=== PATIENT | female | born 1955 | race Caucasian/White ===

== ENCOUNTER 2018-05-23 13:11 | Emergency (ER) | payer OTHER ==
[2018-05-23 13:42] VITALS: BP 147/80
--- NOTE | 2018-05-23 14:16 | EDM.PDOC ---
ED HPI GENERAL MEDICAL PROBLEM - General Chief Complaint: Chest Pain Stated Complaint: HAS HAD PAIN IN CHEST AREA Time Seen by Provider: 05/23/18 14:10 Source of Information: Reports: Patient History Limitations: Reports: No Limitations - History of Present Illness INITIAL COMMENTS - FREE TEXT/NARRATIVE: pt arrived with a history of a brief episode of pain in the mid chest area. She is not sob. she did have a brief episode of burning pain in the throat area. She felt like she could have gotten a little sweaty at that time. 2 weeks ago she had a similar episode but it did last a little longer than this one. She is not sob. Onset: Today, Sudden Duration: Minutes: Location: Reports: Chest Associated Symptoms: Reports: Chest Pain - Related Data Allergies Allergy/AdvReac Type Severity Reaction Status Date / Time latex Allergy Rash Verified 05/23/18 13:30 lisinopril AdvReac Cough Verified 05/23/18 13:30 Home Meds: Home Meds Vitamin E 400 units PO DAILY 12/30/13 [History] Acetaminophen [Tylenol Extra Strength] 1 - 2 tab PO ASDIRECTED PRN 08/09/14 [ History] Allopurinol [Zyloprim] 300 mg PO DAILY 08/09/14 [History] Aspirin [Halfprin] 81 mg PO DAILY 08/09/14 [History] Cholecalciferol (Vitamin D3) [Vitamin D] 1 tab PO DAILY 08/09/14 [History] Citalopram Hydrobromide [Celexa] 20 mg PO DAILY 08/09/14 [History] HCTZ/Triamterene [Maxzide 25-37.5 MG] 0.5 tab PO DAILY 08/09/14 [History] Metoprolol Succinate [Toprol Xl] 100 tab PO DAILY 08/09/14 [History] Omeprazole [Prilosec] 1 tab PO DAILY PRN 08/09/14 [History] Simvastatin [Zocor] 1 tab PO BEDTIME 08/09/14 [History] amLODIPine [Norvasc] 5 mg PO DAILY 08/09/14 [History] buPROPion [Wellbutrin XL] 300 mg PO DAILY 08/09/14 [History] Cyanocobalamin (Vitamin B-12) [Vitamin B-12] 1 tab PO DAILY 08/11/14 [History] Past Medical History Cardiovascular History: Reports: CAD, High Cholesterol, Hypertension 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 History: Reports: GERD 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: Musculoskeletal History: Reports: Gout, Osteoporosis Psychiatric History: Reports: Depression Dermatologic History: Reports: Other (See Below) Other Dermatologic History: rash - Infectious Disease History Infectious Disease History: Reports: Chicken Pox - Past Surgical History Cardiovascular Surgical History: Reports: Coronary Artery Stent, Percutaneous Transluminal Angioplasty GI Surgical History: Reports: Appendectomy Female Surgical History: Reports: Hysterectomy, Salpingo-Oophorectomy Musculoskeletal Surgical History: Reports: Knee Replacement, Shoulder Surgery Social & Family History - Tobacco Use Smoking Status *Q: Never Smoker - Caffeine Use Caffeine Use: Reports: Coffee - Recreational Drug Use Recreational Drug Use: No ED ROS GENERAL - Review of Systems Review Of Systems: See Below Constitutional: Reports: No Symptoms HEENT: Reports: No Symptoms Respiratory: Reports: No Symptoms Cardiovascular: Reports: Chest Pain Endocrine: Reports: No Symptoms GI/Abdominal: Reports: No Symptoms : Reports: No Symptoms Musculoskeletal: Reports: No Symptoms Skin: Reports: No Symptoms Neurological: Reports: No Symptoms Psychiatric: Reports: No Symptoms ED EXAM, GENERAL - Physical Exam Exam: See Below Free Text/Narrative:: pt arrived with a episodde of chest pressure and some burning chest pain debora g to her neck. Exam Limited By: No Limitations General Appearance: Alert, Anxious, Mild Distress Ears: Normal TMs Nose: Normal Inspection Throat/Mouth: Normal Inspection Head: Atraumatic Neck: Normal Inspection Respiratory/Chest: No Respiratory Distress Cardiovascular: Regular Rate, Rhythm GI/Abdominal: Soft, Non-Tender (Female) Exam: Deferred Rectal (Female) Exam: Deferred Back Exam: Normal Inspection Extremities: Normal Inspection Neurological: Alert, Oriented, Normal Cognition Psychiatric: Normal Affect Course - Vital Signs Last Recorded V/S: Last Vital Signs Temp 36.3 C 05/23/18 13:36 Pulse 78 05/23/18 13:36 Resp 20 05/23/18 13:36 BP 147/80 H 05/23/18 13:36 Pulse Ox 97 05/23/18 13:36 - Orders/Labs/Meds Orders: Active Orders 24 hr Category Date Time Status EKG Documentation Completion [RC] ASDIRECTED Care 05/23/18 14:09 Active Potassium Chloride [Klor-Con M20] Med 05/23/18 15:15 Once 20 meq PO ONETIME ONE EKG 12 Lead [EK] Routine Ther 05/23/18 14:09 Ordered Labs: Laboratory Tests 05/23/18 05/23/18 05/23/18 Range/Units 14:20 14:20 14:20 WBC 8.0 (4.5-11.0) K/uL RBC 4.46 (3.30-5.50) M/uL Hgb 14.0 (12.0-15.0) g/dL Hct 42.4 (36.0-48.0) % MCV 95 (80-98) fL MCH 31 (27-31) pg MCHC 33 (32-36) % Plt Count 278 (150-400) K/uL Neut % (Auto) 51 (36-66) % Lymph % (Auto) 37 (24-44) % [place] % (Auto) 10 H (2-6) % Eos % (Auto) 2 (2-4) % Baso % (Auto) 1 (0-1) % Sodium 140 (140-148) mmol/L Potassium 3.1 L (3.6-5.2) mmol/L Chloride 103 (100-108) mmol/L Carbon Dioxide 28 (21-32) mmol/L Anion Gap 12.1 (5.0-14.0) mmol/L BUN 25 H (7-18) mg/dL Creatinine 1.1 H (0.6-1.0) mg/dL Est Cr Clr Drug Dosing 48.37 mL/min Estimated GFR (MDRD) 50 L (>60) Glucose 120 H (74-106) mg/dL Calcium 9.4 (8.5-10.1) mg/dL Total Bilirubin 0.8 (0.2-1.0) mg/dL AST 21 (15-37) U/L ALT 30 (12-78) U/L Alkaline Phosphatase 110 (46-116) U/L Troponin I < 0.017 (0.000-0.056) ng/mL Total Protein 6.8 (6.4-8.2) g/dL Albumin 3.6 (3.4-5.0) g/dL Globulin 3.2 (2.3-3.5) g/dL Albumin/Globulin Ratio 1.1 L (1.2-2.2) - Re-Assessments/Exams Free Text/Narrative Re-Assessment/Exam: 05/23/18 15:22 ekg looked normal and her trop was normal. All other lab was normal. Departure - Departure Time of Disposition: 15:26 Disposition: Home, Self-Care 01 Condition: Fair Clinical Impression: Atypical chest pain Referrals: Ivy Martinez PA [Primary Care Provider] - Forms: ED Department Discharge Care Plan Goals: rtc for a exercise cardiolyte., rtc if pt has further problems. - My Orders Last 24 Hours: My Active Orders 05/23/18 14:09 EKG Documentation Completion [RC] ASDIRECTED EKG 12 Lead [EK] Routine 05/23/18 15:15 Potassium Chloride [Klor-Con M20] 20 meq PO ONETIME ONE - Assessment/Plan Last 24 Hours: My Active Orders 05/23/18 14:09 EKG Documentation Completion [RC] ASDIRECTED EKG 12 Lead [EK] Routine 05/23/18 15:15 Potassium Chloride [Klor-Con M20] 20 meq PO ONETIME ONE
[2018-05-23] MEDS ORDERED: Potassium Chloride 20 MEQ Tab.ER PO ONE (15:15)
== END 2018-05-23 15:41 | disposition home or self-care (01) ==
LOC: JP.ED 13:11
DX: R07.89 Other chest pain (principal); I10 Essential (primary) hypertension; Z91.040 Latex allergy status; Z88.8 Allergy status to other drugs, medicaments and biological substances; Z79.899 Other long term (current) drug therapy; Z79.82 Long term (current) use of aspirin
CPT/HCPCS: 36415; 80053; 84484; 85025; 93005; 99285; A9270

== ENCOUNTER 2018-05-24 04:04 | Emergency (ER) | payer OTHER ==
--- NOTE | 2018-05-24 04:51 | EDM.PDOC ---
ED HPI GENERAL MEDICAL PROBLEM - General Chief Complaint: Chest Pain Stated Complaint: BURNING IN CHEST Time Seen by Provider: 05/24/18 04:30 Source of Information: Reports: Patient History Limitations: Reports: No Limitations - History of Present Illness INITIAL COMMENTS - FREE TEXT/NARRATIVE: 62-year-old female in the emergency room the second time in 24 hours for burning in her chest. She does have a history of coronary disease and had a stent placed 20 years ago. This is the fourth time at least that she has had this burning sensation in the last 2 weeks, the first was 2 weeks ago and it lasted 10 minutes. Yesterday afternoon she was here with the sensation, a fairly complete workup was done in the emergency room which was negative and a stress test is going to be done this week. Tonight however she woke up with the burning sensation, took a few TUMS and it didn't go away and she started to worry so came back in. She has no shortness of breath, nausea or vomiting, diaphoresis or any other symptom, it does not radiate. Onset: Unknown/Unsure Location: Reports: Chest (Substernal lower anterior chest and upper abdomen) Quality: Reports: Burning Severity: Moderate Improves with: Reports: Other (She feels it gets a little better when she hugs herself or closes her arms) Worsens with: Reports: None Treatments AREA CLEANER: Reports: Other (see below) (She tried antacids without relief) chest pain Pain Score (Numeric/FACES): 3 - Related Data Allergies Allergy/AdvReac Type Severity Reaction Status Date / Time latex Allergy Rash Verified 05/24/18 04:10 lisinopril AdvReac Cough Verified 05/24/18 04:10 Home Meds: Home Meds Vitamin E 400 units PO DAILY 12/30/13 [History] Acetaminophen [Tylenol Extra Strength] 1 - 2 tab PO ASDIRECTED PRN 08/09/14 [ History] Allopurinol [Zyloprim] 300 mg PO DAILY 08/09/14 [History] Aspirin [Halfprin] 81 mg PO DAILY 08/09/14 [History] Cholecalciferol (Vitamin D3) [Vitamin D] 1 tab PO DAILY 08/09/14 [History] Citalopram Hydrobromide [Celexa] 20 mg PO DAILY 08/09/14 [History] HCTZ/Triamterene [Maxzide 25-37.5 MG] 0.5 tab PO DAILY 08/09/14 [History] Metoprolol Succinate [Toprol Xl] 100 tab PO DAILY 08/09/14 [History] Omeprazole [Prilosec] 1 tab PO DAILY PRN 08/09/14 [History] Simvastatin [Zocor] 1 tab PO BEDTIME 08/09/14 [History] amLODIPine [Norvasc] 5 mg PO DAILY 08/09/14 [History] buPROPion [Wellbutrin XL] 300 mg PO DAILY 08/09/14 [History] Cyanocobalamin (Vitamin B-12) [Vitamin B-12] 1 tab PO DAILY 08/11/14 [History] Past Medical History Cardiovascular History: Reports: CAD, High Cholesterol, Hypertension 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 History: Reports: GERD 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: Musculoskeletal History: Reports: Gout, Osteoporosis Psychiatric History: Reports: Depression Dermatologic History: Reports: Other (See Below) Other Dermatologic History: rash - Infectious Disease History Infectious Disease History: Reports: Chicken Pox - Past Surgical History Cardiovascular Surgical History: Reports: Coronary Artery Stent, Percutaneous Transluminal Angioplasty GI Surgical History: Reports: Appendectomy Female Surgical History: Reports: Hysterectomy, Salpingo-Oophorectomy Musculoskeletal Surgical History: Reports: Knee Replacement, Shoulder Surgery Social & Family History - Family History Family Medical History: Unobtainable - Tobacco Use Smoking Status *Q: Never Smoker Second Hand Smoke Exposure: No - Caffeine Use Caffeine Use: Reports: Coffee - Recreational Drug Use Recreational Drug Use: No ED ROS GENERAL - Review of Systems Review Of Systems: See Below Constitutional: Denies: Fever, Chills Respiratory: Denies: Shortness of Breath Cardiovascular: Reports: Chest Pain GI/Abdominal: Denies: Abdominal Pain, Nausea, Vomiting Skin: Reports: No Symptoms Neurological: Reports: No Symptoms ED EXAM, GENERAL - Physical Exam Exam: See Below Exam Limited By: No Limitations General Appearance: Alert, No Apparent Distress Eye Exam: Bilateral Eye: EOMI Respiratory/Chest: No Respiratory Distress, Lungs Clear Cardiovascular: Regular Rate, Rhythm. No: Extra Beats GI/Abdominal: Soft, Non-Tender Extremities: Pedal Edema (Just a trace of ankle edema is present) Neurological: Alert, Oriented Psychiatric: Normal Affect, Normal Mood Skin Exam: Warm, Dry EKG INTERPRETATION Rhythm: NSR Course - Vital Signs Last Recorded V/S: Last Vital Signs Temp 96.3 F 05/24/18 04:30 Pulse 65 05/24/18 05:06 Resp 14 05/24/18 05:06 BP 119/79 05/24/18 05:06 Pulse Ox 98 05/24/18 05:06 - Orders/Labs/Meds Orders: Active Orders 24 hr Category Date Time Status EKG Documentation Completion [RC] ASDIRECTED Care 05/24/18 04:44 Active Labs: Laboratory Tests 05/24/18 Range/Units 04:50 Sodium 139 L (140-148) mmol/L Potassium 3.4 L (3.6-5.2) mmol/L Chloride 103 (100-108) mmol/L Carbon Dioxide 31 (21-32) mmol/L Anion Gap 8.4 (5.0-14.0) mmol/L BUN 24 H (7-18) mg/dL Creatinine 1.1 H (0.6-1.0) mg/dL Est Cr Clr Drug Dosing 48.63 mL/min Estimated GFR (MDRD) 50 L (>60) Glucose 109 H (74-106) mg/dL Calcium 9.1 (8.5-10.1) mg/dL Troponin I < 0.017 (0.000-0.056) ng/mL Meds: Medications Discontinued Medications Generic Name Dose Route Start Last Admin Trade Name Freq PRN Reason Stop Dose Admin Al Hydroxide/Mg Hydroxide 15 0 ml 05/24/18 04:58 05/24/18 05:05 ml/ Lidocaine HCl 15 ml PO 05/24/18 04:59 15 ml ONETIME ONE Administration - Re-Assessments/Exams Free Text/Narrative Re-Assessment/Exam: 05/24/18 04:51 An EKG was done and compared to this morning. BMP and troponin were drawn and the patient was given a GI cocktail. 05/24/18 05:43 GI cocktail didn't seem to make a difference. EKG was now completely normal, troponin was 0 and potassium was improved from yesterday. Encouraged the patient to keep her appointment for her stress test, she can always return if she feels she is worsening. Departure - Departure Time of Disposition: 05:57 Disposition: Home, Self-Care 01 Condition: Good Clinical Impression: Atypical chest pain - Discharge Information Instructions: Nonspecific Chest Pain, [id number] Referrals: PCP,None [Primary Care Provider] - Forms: ED Department Discharge Care Plan Goals: Tylenol or ibuprofen several times daily may be beneficial if you're symptoms are musculoskeletal. Finish stress test as scheduled, and return anytime if worsening or concerns. - My Orders Last 24 Hours: My Active Orders 05/24/18 04:44 EKG Documentation Completion [RC] ASDIRECTED - Assessment/Plan Last 24 Hours: My Active Orders 05/24/18 04:44 EKG Documentation Completion [RC] ASDIRECTED
[2018-05-24] MEDS ORDERED: Alum Hydrox/Mag Hydrox/Simeth 15 ML, Lidocaine 2% 15 ML PO ONE ×2 (04:58)
[2018-05-24 05:08] VITALS: BP 119/79
--- NOTE | 2018-05-24 09:40 | CR ---
CHEST: 2 view CLINICAL HISTORY:Dyspnea COMPARISON:None FINDINGS: Heart size and pulmonary vascularity are normal. No infiltrate effusion or pneumothorax is seen. Impression: No acute cardiopulmonary process.
== END 2018-05-24 05:59 | disposition home or self-care (01) ==
LOC: JP.ED 04:04
DX: R07.89 Other chest pain (principal)
CPT/HCPCS: 36415; 71046; 80048; 84484; 93005; 99285; A9270

== ENCOUNTER 2019-08-28 03:20 | Emergency (ER) | payer OTHER ==
[2019-08-28] MEDS ORDERED: Sodium Chloride 0.9% 10 ML Syringe FLUSH PRN (03:40)
[2019-08-28] MEDS ORDERED: Ibutilide 1 MG/10 ML Vial IVPUSH ONE (03:41)
--- NOTE | 2019-08-28 03:44 | EDM.PDOC ---
ED HPI GENERAL MEDICAL PROBLEM - General Chief Complaint: Cardiovascular Problem Stated Complaint: RAPID HEART BEAT Time Seen by Provider: 08/28/19 03:36 Source of Information: Reports: Patient, Family, RN Notes Reviewed History Limitations: Reports: No Limitations - History of Present Illness INITIAL COMMENTS - FREE TEXT/NARRATIVE: 64-year-old female presents emergency department today complaint of palpitations , she states she woke from sleep with palpitations does have some pain in her left arm as well as her left neck initially short of breath initially nauseated and diaphoretic though symptoms have improved this time. No history of atrial fibrillation no history of atrial flutter - Related Data Allergies Allergy/AdvReac Type Severity Reaction Status Date / Time latex Allergy Rash Verified 08/28/19 03:36 lisinopril AdvReac Cough Verified 08/28/19 03:36 Home Meds: Home Meds Vitamin E 400 units PO BEDTIME 12/30/13 [History] Acetaminophen [Tylenol Extra Strength] 1 - 2 tab PO ASDIRECTED PRN 08/09/14 [ History] Allopurinol [Zyloprim] 300 mg PO DAILY 08/09/14 [History] Aspirin [Halfprin] 81 mg PO BEDTIME 08/09/14 [History] Cholecalciferol (Vitamin D3) [Vitamin D] 1 tab PO DAILY 08/09/14 [History] Citalopram Hydrobromide [Celexa] 20 mg PO DAILY 08/09/14 [History] HCTZ/Triamterene [Maxzide 25-37.5 MG] 1 tab PO DAILY 08/09/14 [History] Metoprolol Succinate [Toprol Xl] 100 tab PO DAILY 08/09/14 [History] Omeprazole [Prilosec] 1 tab PO DAILY PRN 08/09/14 [History] Simvastatin [Zocor] 80 mg PO BEDTIME 08/09/14 [History] amLODIPine [Norvasc] 5 mg PO DAILY 08/09/14 [History] buPROPion [Wellbutrin XL] 300 mg PO DAILY 08/09/14 [History] Cyanocobalamin (Vitamin B-12) [Vitamin B-12] 1 tab PO DAILY 08/11/14 [History] Past Medical History Cardiovascular History: Reports: CAD, High Cholesterol, Hypertension 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 History: Reports: GERD 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: Musculoskeletal History: Reports: Gout, Osteoporosis Psychiatric History: Reports: Depression Dermatologic History: Reports: Other (See Below) Other Dermatologic History: rash - Infectious Disease History Infectious Disease History: Reports: Chicken Pox - Past Surgical History Cardiovascular Surgical History: Reports: Coronary Artery Stent, Percutaneous Transluminal Angioplasty GI Surgical History: Reports: Appendectomy Female Surgical History: Reports: Hysterectomy, Salpingo-Oophorectomy Musculoskeletal Surgical History: Reports: Knee Replacement, Shoulder Surgery Social & Family History - Family History Family Medical History: Unobtainable - Tobacco Use Smoking Status *Q: Never Smoker - Caffeine Use Caffeine Use: Reports: Coffee ED ROS GENERAL - Review of Systems Review Of Systems: See Below Constitutional: Reports: Diaphoresis HEENT: Reports: No Symptoms Respiratory: Reports: Shortness of Breath Cardiovascular: Reports: Palpitations GI/Abdominal: Reports: Nausea : Reports: No Symptoms ED EXAM, GENERAL - Physical Exam Exam: See Below Exam Limited By: No Limitations General Appearance: Alert, WD/WN, No Apparent Distress Neck: Normal Inspection, Supple, Non-Tender, Full Range of Motion Respiratory/Chest: No Respiratory Distress, Lungs Clear, Normal Breath Sounds, No Accessory Muscle Use, Chest Non-Tender Cardiovascular: No Murmur (Corvert), Tachycardia GI/Abdominal: Soft, Non-Tender Course - Vital Signs Last Recorded V/S: Last Vital Signs Temp 96.6 F 08/28/19 03:42 Pulse 114 H 08/28/19 04:11 Resp 15 08/28/19 04:11 BP 123/72 08/28/19 04:11 Pulse Ox 97 08/28/19 04:11 - Orders/Labs/Meds Orders: Active Orders 24 hr Category Date Time Status Cardiac Monitoring [RC] .As Directed Care 08/28/19 03:40 Active EKG Documentation Completion [RC] ASDIRECTED Care 08/28/19 03:41 Active EKG Documentation Completion [RC] ASDIRECTED Care 08/28/19 06:46 Active Peripheral IV Care [RC] . DIRECTED Care 08/28/19 03:41 Active Sodium Chloride 0.9% [Normal Saline] 1,000 ml Med 08/28/19 03:45 Active IV ASDIRECTED Sodium Chloride 0.9% [Normal Saline] 1,000 ml Med 08/28/19 05:45 Active IV ASDIRECTED Sodium Chloride 0.9% [Saline Flush] Med 08/28/19 03:40 Active 10 ml FLUSH ASDIRECTED PRN Peripheral IV Insertion Adult [OM.PC] Stat Oth 08/28/19 03:40 Ordered EKG 12 Lead [EK] Stat Ther 08/28/19 03:40 Ordered EKG 12 Lead [EK] Stat Ther 08/28/19 06:45 Ordered Medication Orders Sodium Chloride (Normal Saline) 1,000 mls @ 125 mls/hr IV ASDIRECTED ANA Last Infusion: 08/28/19 04:58 Dose: 999 mls/hr Admin: 08/28/19 03:51 Dose: 125 mls/hr Sodium Chloride (Normal Saline) 1,000 mls @ 500 mls/hr IV ASDIRECTED ANA Last Admin: 08/28/19 05:51 Dose: 500 mls/hr Sodium Chloride (Saline Flush) 10 ml FLUSH ASDIRECTED PRN PRN Reason: Keep Vein Open Last Admin: 08/28/19 03:51 Dose: 10 ml Labs: Laboratory Tests 08/28/19 08/28/19 Range/Units 03:50 03:50 WBC 8.6 (4.5-11.0) K/uL RBC 4.43 (3.30-5.50) M/uL Hgb 14.2 (12.0-15.0) g/dL Hct 42.6 (36.0-48.0) % MCV 96 (80-98) fL MCH 32 H (27-31) pg MCHC 33 (32-36) % Plt Count 271 (150-400) K/uL Neut % (Auto) 43 (36-66) % Lymph % (Auto) 42 (24-44) % [place] % (Auto) 12 H (2-6) % Eos % (Auto) 3 (2-4) % Baso % (Auto) 1 (0-1) % Sodium 141 (140-148) mmol/L Potassium 3.1 L (3.6-5.2) mmol/L Chloride 102 (100-108) mmol/L Carbon Dioxide 29 (21-32) mmol/L Anion Gap 13.1 (5.0-14.0) mmol/L BUN 30 H (7-18) mg/dL Creatinine 1.1 H (0.6-1.0) mg/dL Est Cr Clr Drug Dosing 47.10 mL/min Estimated GFR (MDRD) 50 L (>60) Glucose 111 H (74-106) mg/dL Calcium 9.3 (8.5-10.1) mg/dL Total Bilirubin 0.5 (0.2-1.0) mg/dL AST 19 (15-37) U/L ALT 21 (12-78) U/L Alkaline Phosphatase 101 (46-116) U/L Troponin I < 0.017 (0.000-0.056) ng/mL Total Protein 7.0 (6.4-8.2) g/dL Albumin 3.5 (3.4-5.0) g/dL Globulin 3.5 (2.3-3.5) g/dL Albumin/Globulin Ratio 1.0 L (1.2-2.2) Meds: Medications Generic Name Dose Route Start Last Admin Trade Name Freq PRN Reason Stop Dose Admin Sodium Chloride 1,000 mls @ 125 mls/hr 08/28/19 03:45 08/28/19 04:58 Normal Saline IV 999 mls/hr ASDIRECTED ANA Infusion Sodium Chloride 1,000 mls @ 500 mls/hr 08/28/19 05:45 08/28/19 05:51 Normal Saline IV 500 mls/hr ASDIRECTED ANA Administration Sodium Chloride 10 ml 08/28/19 03:40 08/28/19 03:51 Saline Flush FLUSH 10 ml ASDIRECTED PRN Administration Keep Vein Open Discontinued Medications Generic Name Dose Route Start Last Admin Trade Name Freq PRN Reason Stop Dose Admin Diltiazem HCl 25 mg 08/28/19 05:26 08/28/19 05:35 Diltiazem IVPUSH 08/28/19 05:27 25 mg ONETIME ONE Administration Ibutilide Fumarate 1 mg 08/28/19 03:41 08/28/19 04:08 [place]vert IVPUSH 08/28/19 03:42 1 mg ONETIME ONE Administration Warfarin Sodium 5 mg 08/28/19 06:58 Coumadin PO 08/28/19 06:59 ONETIME ONE Departure - Departure Time of Disposition: 07:05 Disposition: Home, Self-Care 01 Condition: Fair Clinical Impression: Paroxysmal atrial fibrillation Referrals: Daniel Bishop MD [Primary Care Provider] - Forms: ED Department Discharge Additional Instructions: Take her Coumadin one tablet once a day please follow-up with the Coumadin clinic this week and then with your primary care provider for further evaluation , consider consultation with hand stitcher, call return to the emergency department with worsening of symptoms - My Orders Last 24 Hours: My Active Orders 08/28/19 03:40 Cardiac Monitoring [RC] .As Directed Sodium Chloride 0.9% [Saline Flush] 10 ml FLUSH ASDIRECTED PRN Peripheral IV Insertion Adult [OM.PC] Stat EKG 12 Lead [EK] Stat 08/28/19 03:41 EKG Documentation Completion [RC] ASDIRECTED Peripheral IV Care [RC] . DIRECTED 08/28/19 03:45 Sodium Chloride 0.9% [Normal Saline] 1,000 ml IV ASDIRECTED 08/28/19 05:45 Sodium Chloride 0.9% [Normal Saline] 1,000 ml IV ASDIRECTED 08/28/19 06:45 EKG 12 Lead [EK] Stat 08/28/19 06:46 EKG Documentation Completion [RC] ASDIRECTED - Assessment/Plan Last 24 Hours: My Active Orders 08/28/19 03:40 Cardiac Monitoring [RC] .As Directed Sodium Chloride 0.9% [Saline Flush] 10 ml FLUSH ASDIRECTED PRN Peripheral IV Insertion Adult [OM.PC] Stat EKG 12 Lead [EK] Stat 08/28/19 03:41 EKG Documentation Completion [RC] ASDIRECTED Peripheral IV Care [RC] . DIRECTED 08/28/19 03:45 Sodium Chloride 0.9% [Normal Saline] 1,000 ml IV ASDIRECTED 08/28/19 05:45 Sodium Chloride 0.9% [Normal Saline] 1,000 ml IV ASDIRECTED 08/28/19 06:45 EKG 12 Lead [EK] Stat 08/28/19 06:46 EKG Documentation Completion [RC] ASDIRECTED Plan: Assessment Acuity = acute Site and laterality = paroxysmal atrial fibrillation Etiology = unknown Manifestations = chest tightness now resolved Location of injury = Home Lab values = CBC unremarkable potassium low at 3.1 consistent hypokalemia troponin is negative initial EKG showed questionable fib flutter however spontaneous conversion shows a sinus rhythm Plan Her chads score is 3 puts her at moderate risk did discuss options with her she elected to go with Coumadin therefore started Coumadin 5 mg by mouth today and then 2 mg thereafter she will follow up with the Coumadin clinic next week This note was dictated using [employer] voice recognition software please call with any questions on syntax or grammar.
[2019-08-28] MEDS ORDERED: Sodium Chloride 0.9% 1,000 ML IV SCH ×2 (03:45→05:45)
[2019-08-28] MEDS ORDERED: Diltiazem 25 MG/5 ML SDV IVPUSH ONE (05:26)
[2019-08-28] MEDS ORDERED: Warfarin 5 MG Tab PO ONE (06:58)
[2019-08-28 07:25] VITALS: BP 112/66; PULSE 57
== END 2019-08-28 07:20 | disposition home or self-care (01) ==
LOC: JP.ED 03:20
DX: I48.0 Paroxysmal atrial fibrillation (principal); I10 Essential (primary) hypertension; E78.5 Hyperlipidemia, unspecified; K21.9 Gastro-esophageal reflux disease without esophagitis; F32.9 Major depressive disorder, single episode, unspecified; Z88.8 Allergy status to other drugs, medicaments and biological substances; Z91.040 Latex allergy status; Z79.82 Long term (current) use of aspirin; Z79.899 Other long term (current) drug therapy
CPT/HCPCS: 36415; 80053; 84484; 85025; 85610; 85730; 93005; 96361; 96374; 96375; 99284; A9270; J1742; J3490; J7030

== ENCOUNTER 2020-05-07 10:28 | Day surgery (SDC) | payer OTHER, MEDICARE ==
[~2020-05-07 10:28] MED LIST: Lidocaine 1% with EPINEPHrine 1:100,000 50 ML MDV ONE
[2020-05-07] MEDS ORDERED: Propofol 200 MG/20 ML SDV ONE (10:53)
[2020-05-07] MEDS ORDERED: fentaNYL 100 MCG/2 ML SDV ONE (10:53)
[2020-05-07] MEDS ORDERED: Midazolam 1 MG/ML 2 ML SDV ONE (10:53)
[2020-05-07] MEDS ORDERED: Lidocaine 0.5% 50 ML SDV ONE (10:53)
[2020-05-07] MEDS ORDERED: Acetaminophen 500 MG Tab PO ONE (11:00)
[2020-05-07] MEDS ORDERED: Dextrose 5%-Lactated Ringers 1,000 ML IV SCH (11:30)
[2020-05-07] MEDS ORDERED: ceFAZolin 2 GM in Premix Bag 1 BAG IV ONE (11:45)
[2020-05-07] MEDS ORDERED: Ketorolac 60 MG/2 ML SDV ONE (11:47)
[2020-05-07] MEDS ORDERED: Acetaminophen/HYDROcodone 325-5 MG Tab PO ONE (12:39)
[2020-05-07 13:33] VITALS: BP 107/72; PULSE 64
--- NOTE | 2020-05-14 14:02 | OR ---
DATE OF PROCEDURE: 05/07/2020 SURGEON: Tone Aragon MD PREOPERATIVE DIAGNOSIS: Right carpal tunnel syndrome. POSTOPERATIVE DIAGNOSIS: Right carpal tunnel syndrome. OPERATIVE PROCEDURE: Right carpal tunnel release. ANESTHESIA: IV block plus sedation. INDICATION FOR PROCEDURE: A 64-year-old presenting with clinically evident bilateral carpal tunnel syndrome. The symptoms were more prominent on the right side and the patient to undergo a right carpal tunnel release. Potential risks of the procedure including bleeding, infection, injury to underlying median nerve and/or its branches, possible incomplete relief of symptoms were all reviewed, and the patient wishes to proceed. DETAILS OF PROCEDURE: The patient was taken to the operating room, placed in a supine position. An IV block was placed affecting the right forearm and hand while IV sedation administered and those areas were then prepped and draped. A standard carpal tunnel incision was made and carried down through the skin and subcutaneous tissue. The transverse carpal ligament, as expected, was quite thickened and brittle. This was divided for the length of the carpal tunnel, including extending down into the palmar hand until there was complete relief of any pressure on the median nerve. The median nerve otherwise appeared to be intact. The point of division in the median nerve was maintained in ulnar orientation with regard to the underlying median nerve, so as to minimize chances of the nerve branches off the median nerve. The incisions were then closed with 4-0 Vicryl stitch in the subdermal area and a 5-0 Prolene skin stitch. Dressing was applied. The patient was taken to the recovery room in satisfactory condition. There were no evident complications. Tone Aragon MD /[id number] [facility]
== END 2020-05-07 13:33 | disposition home or self-care (01) ==
LOC: JP.SDS 10:28
PROVIDERS: ATTEND Surgery
DX: G56.01 Carpal tunnel syndrome, right upper limb (principal); I10 Essential (primary) hypertension; E66.9 Obesity, unspecified; I48.91 Unspecified atrial fibrillation; Z91.040 Latex allergy status; Z91.048 Other nonmedicinal substance allergy status; Z68.38 Body mass index [BMI] 38.0-38.9, adult
CPT/HCPCS: 36415; 64721; 85610; A9270; J0690; J1885; J2001; J2250; J2704; J3010; J7121

== ENCOUNTER 2020-12-17 06:27 | Day surgery (SDC) | payer OTHER, MEDICARE ==
[2020-12-17] MEDS: Sodium Chloride 0.9% 1,000 ML IV SCH (07:17)
[2020-12-17] MEDS ORDERED: Propofol 200 MG/20 ML SDV ONE (07:27)
[2020-12-17] MEDS ORDERED: fentaNYL 100 MCG/2 ML SDV ONE (07:27)
[2020-12-17] MEDS ORDERED: Midazolam 1 MG/ML 2 ML SDV ONE (07:27)
[2020-12-17 09:46] VITALS: BP 117/69; PULSE 76
--- NOTE | 2020-12-17 10:15 | OR ---
DATE OF PROCEDURE: 12/17/2020 SURGEON: Jaime Fuentes MD PROCEDURE: Colonoscopy. FINDINGS: Normal colonoscopy. COMPLICATIONS: None. PROMOTIONAL MARKETING AGENT: None. PREOPERATIVE DIAGNOSIS: Screening colonoscopy. POSTOPERATIVE DIAGNOSIS: Screening colonoscopy. RISKS: Risks, benefits, alternatives, and limitations including, but not limited to infection, bleeding, and perforation were explained to the patient who wished to proceed. We also discussed false positives and false negatives. PROCEDURE IN DETAIL: The patient was placed in left lateral decubitus position. Digital rectal exam was performed without abnormality. Scope was introduced and advanced atraumatically to the ileocecal valve. A photo was taken of this. Scope was brought back to the ascending, transverse, descending colon, and retroflexed. No evidence of old or new blood. No masses. No polyps. No diverticulosis. The prep was acceptable. Approximately 95% of the luminal surface could be seen. No diverticulosis. No polyps. No colitis. No abnormalities on retroflexion. The patient tolerated the procedure well. Greater than 8 minutes was spent removing the scope. Jaime Fuentes MD /[id number]
== END 2020-12-17 10:19 | disposition home or self-care (01) ==
LOC: JP.SDS 06:27
PROVIDERS: ATTEND Surgery
DX: Z12.11 Encounter for screening for malignant neoplasm of colon (principal); I10 Essential (primary) hypertension; G47.33 Obstructive sleep apnea (adult) (pediatric)
CPT/HCPCS: J2250; J2704; J3010; J7030

== ENCOUNTER 2021-08-25 16:18 | Emergency (ER) | payer OTHER, MEDICARE ==
[2021-08-25] MEDS ORDERED: Diltiazem 25 MG/5 ML SDV IVPUSH ONE (16:31)
[2021-08-25] MEDS ORDERED: Sodium Chloride 0.9% 10 ML Syringe FLUSH PRN (16:31)
--- NOTE | 2021-08-25 16:34 | EDM.PDOC ---
ED HPI GENERAL MEDICAL PROBLEM - General Chief Complaint: Chest Pain Stated Complaint: RAPID HEART BEAT/DIZZY/JAW PAIN Time Seen by Provider: 08/25/21 16:31 Source of Information: Reports: Patient, Old Records, RN Notes Reviewed History Limitations: Reports: No Limitations - History of Present Illness INITIAL COMMENTS - FREE TEXT/NARRATIVE: 66-year-old female presents emergency department day complaint of palpitations, she has a known history of paroxysmal atrial fibrillation is currently taking Coumadin states she has been on warfarin and in sinus rhythm without difficulty however this afternoon started feeling palpitations started develop chest pressure not feeling well. - Related Data Allergies Allergy/AdvReac Type Severity Reaction Status Date / Time latex Allergy Rash Verified 08/25/21 16:31 nickel Allergy Rash Verified 08/25/21 16:31 lisinopril AdvReac Cough Verified 08/25/21 16:31 Home Meds: Home Meds Vitamin E 400 units PO BEDTIME 12/30/13 [History] Acetaminophen [Tylenol Extra Strength] 500 - 1,000 mg PO ASDIRECTED PRN 08/09/14 [History] Aspirin [Halfprin] 81 mg PO BEDTIME 08/09/14 [History] Cholecalciferol (Vitamin D3) [Vitamin D] 1,000 units PO DAILY 08/09/14 [History] HCTZ/Triamterene [Maxzide 25-37.5 MG] 1 tab PO DAILY 08/09/14 [History] Metoprolol Succinate [Toprol Xl] 100 mg PO DAILY 08/09/14 [History] Omeprazole [Prilosec] 20 mg PO DAILY 08/09/14 [History] Simvastatin [Zocor] 80 mg PO BEDTIME 08/09/14 [History] allopurinoL [Zyloprim] 100 mg PO DAILY 08/09/14 [History] amLODIPine [Norvasc] 5 mg PO DAILY 08/09/14 [History] buPROPion [Wellbutrin XL] 300 mg PO DAILY 08/09/14 [History] Cyanocobalamin (Vitamin B-12) [Vitamin B-12] 1,000 mcg PO DAILY 08/11/14 [History] Cyclobenzaprine HCl 5 - 10 mg PO TID PRN 05/04/20 [History] Diclofenac Sodium [Voltaren 1% Gel] 4 gm TOP QID 05/04/20 [History] Nitroglycerin [Nitrostat] 0.4 mg SL ASDIRECTED 05/04/20 [History] Warfarin [Coumadin] 2.5 mg PO DAILY 05/04/20 [History] Metoprolol Succinate [Toprol XL] 25 mg PO BEDTIME 12/17/20 [History] Diltiazem [Cardizem SR] 90 mg PO DAILY #30 cap.er 08/25/21 [Rx] Past Medical History HEENT History: Reports: Impaired Vision Cardiovascular History: Reports: Afib, CAD, High Cholesterol, Hypertension 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 History: Reports: GERD 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: Musculoskeletal History: Reports: Fracture, Gout, Osteoporosis Psychiatric History: Reports: Depression Endocrine/Metabolic History: Reports: Obesity/BMI 30+ Hematologic History: Reports: Anticoagulation Therapy Immunologic History: Reports: None Oncologic (Cancer) History: Reports: None Dermatologic History: Reports: Other (See Below) Other Dermatologic History: rash - Infectious Disease History Infectious Disease History: Reports: Chicken Pox - Past Surgical History HEENT Surgical History: Reports: Oral Surgery Other HEENT Surgeries/Procedures: wisdom teeth Cardiovascular Surgical History: Reports: Coronary Artery Stent, Percutaneous Transluminal Angioplasty Respiratory Surgical History: Reports: None GI Surgical History: Reports: Appendectomy, Colonoscopy Female Surgical History: Reports: Hysterectomy, Salpingo-Oophorectomy Musculoskeletal Surgical History: Reports: Knee Replacement, Shoulder Surgery Other Musculoskeletal Surgeries/Procedures:: bilateral knee replacement Social & Family History - Family History Family Medical History: No Pertinent Family History - Caffeine Use Caffeine Use: Reports: Soda ED ROS GENERAL - Review of Systems Review Of Systems: See Below Constitutional: Reports: No Symptoms Respiratory: Reports: No Symptoms Cardiovascular: Reports: Chest Pain, Lightheadedness, Palpitations GI/Abdominal: Reports: No Symptoms ED EXAM, GENERAL - Physical Exam Exam: See Below Exam Limited By: No Limitations General Appearance: Alert, Mild Distress Respiratory/Chest: No Respiratory Distress, Lungs Clear, Normal Breath Sounds, No Accessory Muscle Use, Chest Non-Tender Cardiovascular: Tachycardia GI/Abdominal: Soft, Non-Tender ED CARDIOLOGY PROCEDURES - Cardioversion Time of Cardioversion: 18:21 Indication: Atrial Fibrillation with RVR Patient Counseled: Yes Informed Consent Obtained: Yes Preparation: IV Access, Airway Management Equipment, Supplemental Oxygen, Monitor, Reversal Agents Available Pre-Procedure Sedation: Propofol Cardioversion Energy: 100J Sync, 200J Sync Mode: Biphasic Successful: No Number of Attempts: 2 Patient Condition Post Cardioversion: Unchanged Post Cardioversion EKG Reviewed: No #1 Interpretation EKG Date: 08/25/21 Time: 16:36 Rhythm: A-Fib [place]: Normal P-Wave: Absent QRS: Normal ST-T: Normal QT: Normal Comparison: Change From Previous EKG Course - Vital Signs Last Recorded V/S: Last Vital Signs Temp 96.6 F L 08/25/21 16:45 Pulse 74 08/25/21 17:47 Resp 15 08/25/21 17:47 BP 128/69 08/25/21 17:47 Pulse Ox 94 L 08/25/21 17:47 - Orders/Labs/Meds Orders: Active Orders 24 hr Category Date Time Status Cardiac Monitoring [RC] .As Directed Care 08/25/21 16:31 Active Peripheral IV Care [RC] . DIRECTED Care 08/25/21 16:32 Active Sodium Chloride 0.9% [Normal Saline] 1,000 ml Med 08/25/21 16:45 Active IV ASDIRECTED Sodium Chloride 0.9% [Saline Flush] Med 08/25/21 16:31 Active 10 ml FLUSH ASDIRECTED PRN ED Antiarrhythmia Med Reflex [OM.PC] Stat Oth 08/25/21 16:32 Ordered Peripheral IV Insertion Adult [OM.PC] Stat Oth 08/25/21 16:31 Ordered EKG 12 Lead [EK] Stat Ther 08/25/21 16:32 Ordered Medication Orders Sodium Chloride (Normal Saline) 1,000 mls @ 125 mls/hr IV ASDIRECTED ANA Last Admin: 08/25/21 16:40 Dose: 125 mls/hr Documented by: DIANA Sodium Chloride (Sodium Chloride 0.9% 10 Ml Syringe) 10 ml FLUSH ASDIRECTED PRN PRN Reason: Keep Vein Open Last Admin: 08/25/21 16:43 Dose: 10 ml Documented by: DIANA Labs: Laboratory Tests 08/25/21 08/25/21 08/25/21 Range/Units 16:40 16:40 16:40 WBC 13.8 H (4.5-11.0) K/uL RBC 4.57 (3.30-5.50) M/uL Hgb 14.3 (12.0-15.0) g/dL Hct 42.4 (36.0-48.0) % MCV 93 (80-98) fL MCH 31 (27-31) pg MCHC 34 (32-36) % Plt Count 277 (150-400) K/uL Neut % (Auto) 64.7 (36-66) % Lymph % (Auto) 22.8 L (24-44) % Saline % (Auto) 11.3 H (2-6) % Eos % (Auto) 1.0 L (2-4) % Baso % (Auto) 0.2 (0-1) % PT 38.0 H (9.2-10.6) sec INR 3.9 Sodium 138 L (140-148) mmol/L Potassium 3.0 L (3.6-5.2) mmol/L Chloride 97 L (100-108) mmol/L Carbon Dioxide 29 (21-32) mmol/L Anion Gap 15.0 H (5.0-14.0) mmol/L BUN 24 H (7-18) mg/dL Creatinine 1.1 H (0.6-1.0) mg/dL Est Cr Clr Drug Dosing 45.82 mL/min Estimated GFR (MDRD) 49 L (>60) Glucose 105 (74-106) mg/dL Calcium 9.6 (8.5-10.1) mg/dL Troponin I < 0.017 (0.000-0.056) ng/mL Meds: Medications Generic Name Dose Route Start Last Admin Trade Name Freq PRN Reason Stop Dose Admin Sodium Chloride 1,000 mls @ 125 mls/hr 08/25/21 16:45 08/25/21 16:40 Normal Saline IV 125 mls/hr ASDIRECTED ANA Administration Sodium Chloride 10 ml 08/25/21 16:31 08/25/21 16:43 Sodium Chloride 0.9% 10 Ml Syringe FLUSH 10 ml ASDIRECTED PRN Administration Keep Vein Open Discontinued Medications Generic Name Dose Route Start Last Admin Trade Name Freq PRN Reason Stop Dose Admin Diltiazem HCl 25 mg 08/25/21 16:31 08/25/21 16:40 Diltiazem 25 Mg/5 Ml Sdv IVPUSH 08/25/21 16:32 25 mg ONETIME ONE Administration Propofol 200 mg 08/25/21 17:46 Propofol 200 Mg/20 Ml Sdv IVPUSH 08/25/21 17:47 ONETIME ONE Departure - Departure Time of Disposition: 18:33 Disposition: Home, Self-Care 01 Condition: Fair Clinical Impression: Atrial fibrillation with rapid ventricular response Prescriptions: Diltiazem [Cardizem SR] 90 mg PO DAILY #30 cap.er Referrals: PCP,None [Primary Care Provider] - Forms: ED Department Discharge Additional Instructions: Start your Cardizem tomorrow please contact your primary care for further evaluation and treatment tomorrow call return to the emergency department wo rsening symptoms Sepsis Event Note (ED) - Focused Exam Vital Signs: Vital Signs Temp Pulse Resp BP Pulse Ox 08/25/21 17:47 74 15 128/69 94 L 08/25/21 17:09 66 19 123/71 95 08/25/21 16:49 87 15 121/61 94 L 08/25/21 16:45 96.6 F L 136 H 19 125/90 98 08/25/21 16:32 96.6 F L 136 H 19 125/90 98 - My Orders Last 24 Hours: My Active Orders 08/25/21 16:31 Cardiac Monitoring [RC] .As Directed Sodium Chloride 0.9% [Saline Flush] 10 ml FLUSH ASDIRECTED PRN Peripheral IV Insertion Adult [OM.PC] Stat 08/25/21 16:32 Peripheral IV Care [RC] . DIRECTED ED Antiarrhythmia Med Reflex [OM.PC] Stat EKG 12 Lead [EK] Stat 08/25/21 16:45 Sodium Chloride 0.9% [Normal Saline] 1,000 ml IV ASDIRECTED - Assessment/Plan Last 24 Hours: My Active Orders 08/25/21 16:31 Cardiac Monitoring [RC] .As Directed Sodium Chloride 0.9% [Saline Flush] 10 ml FLUSH ASDIRECTED PRN Peripheral IV Insertion Adult [OM.PC] Stat 08/25/21 16:32 Peripheral IV Care [RC] . DIRECTED ED Antiarrhythmia Med Reflex [OM.PC] Stat EKG 12 Lead [EK] Stat 08/25/21 16:45 Sodium Chloride 0.9% [Normal Saline] 1,000 ml IV ASDIRECTED Plan: Assessment Acuity = acute Site and laterality = atrial fibrillation with rapid ventricular response Etiology = unknown Manifestations = none Location of injury = Home Lab values = WBC elevated 13.8 consistent leukocytosis, potassium low at 3.0 consistent with hypokalemia creatinine elevated 1.1 consistent chronic renal failure stage T3a EKG demonstrates atrial fibrillation, post cardioversion remained in atrial fibrillation however rate was controlled on Cardizem Plan Plan start Cardizem 30 mg once a day this medication faxed to [facility] pharmacy she will follow-up with her primary care tomorrow and cardiology for further evaluation This note was dictated using [employer] voice recognition software please call with any questions on syntax or grammar.
[2021-08-25] MEDS ORDERED: Sodium Chloride 0.9% 1,000 ML IV SCH (16:45)
[2021-08-25] MEDS ORDERED: Propofol 200 MG/20 ML SDV IVPUSH ONE (17:46)
[2021-08-25 17:48] VITALS: BP 128/69; PULSE 74
== END 2021-08-25 18:40 | disposition home or self-care (01) ==
LOC: JP.ED 16:18
DX: I48.91 Unspecified atrial fibrillation (principal); I25.10 Atherosclerotic heart disease of native coronary artery without angina pectoris; E78.00 Pure hypercholesterolemia, unspecified; I10 Essential (primary) hypertension; K21.9 Gastro-esophageal reflux disease without esophagitis; M10.9 Gout, unspecified; E66.9 Obesity, unspecified; Z68.37 Body mass index [BMI] 37.0-37.9, adult; Z79.01 Long term (current) use of anticoagulants; Z79.82 Long term (current) use of aspirin; Z79.899 Other long term (current) drug therapy; Z91.040 Latex allergy status; Z88.8 Allergy status to other drugs, medicaments and biological substances; Z91.048 Other nonmedicinal substance allergy status
CPT/HCPCS: 36415; 80048; 84484; 85025; 85610; 92960; 93005; 96374; 99285; J3490; J7030

== ENCOUNTER 2022-07-06 08:44 | Emergency (ER) | payer MEDICARE, BC ==
[2022-07-06 09:05] VITALS: BP 135/77; PULSE 81
== END 2022-07-06 11:05 | disposition home or self-care (01) ==
LOC: JP.ED 08:44
DX: S00.03XA Contusion of scalp, initial encounter (principal); I25.10 Atherosclerotic heart disease of native coronary artery without angina pectoris; E78.00 Pure hypercholesterolemia, unspecified; I10 Essential (primary) hypertension; E66.9 Obesity, unspecified; Z68.35 Body mass index [BMI] 35.0-35.9, adult; Z91.040 Latex allergy status; Z91.048 Other nonmedicinal substance allergy status; Z88.8 Allergy status to other drugs, medicaments and biological substances; Z79.899 Other long term (current) drug therapy; Z79.82 Long term (current) use of aspirin; Z79.01 Long term (current) use of anticoagulants; Z86.16 Personal history of COVID-19; Z90.49 Acquired absence of other specified parts of digestive tract; Z90.710 Acquired absence of both cervix and uterus; W01.10XA Fall on same level from slipping, tripping and stumbling with subsequent striking against unspecified object, initial encounter
CPT/HCPCS: 70450; 99283

== ENCOUNTER 2024-09-02 13:59 | Emergency (ER) | payer MEDICARE, BC ==
[2024-09-02 15:57] VITALS: BP 115/77; PULSE 120
== END 2024-09-02 15:57 | disposition home or self-care (01) ==
LOC: JP.ED 13:59
DX: I48.92 Unspecified atrial flutter (principal); I48.91 Unspecified atrial fibrillation; E66.9 Obesity, unspecified; Z68.33 Body mass index [BMI] 33.0-33.9, adult; Z86.16 Personal history of COVID-19; Z95.5 Presence of coronary angioplasty implant and graft; Z90.49 Acquired absence of other specified parts of digestive tract; Z90.710 Acquired absence of both cervix and uterus; Z96.659 Presence of unspecified artificial knee joint; Z91.040 Latex allergy status; Z91.048 Other nonmedicinal substance allergy status; Z88.8 Allergy status to other drugs, medicaments and biological substances; Z79.1 Long term (current) use of non-steroidal anti-inflammatories (NSAID); Z79.01 Long term (current) use of anticoagulants; Z79.02 Long term (current) use of antithrombotics/antiplatelets; Z79.899 Other long term (current) drug therapy
CPT/HCPCS: 99284

== ENCOUNTER 2024-09-19 21:31 | Emergency (ER) | payer MEDICARE, BC ==
[2024-09-19 21:50] LABS: BASOPHILS ABSOLUTE AUTO 0.03 K/uL (0.00-0.10); BASOPHILS PERCENT AUTO 0.4 % (0.1-1.3); EOSINOPHILS ABSOLUTE AUTO 0.13 K/uL (0.00-0.40); EOSINOPHILS PERCENT AUTO 1.7 % (0.0-5.4); IMMATURE GRAN PERCENT AUTO 0.3 % (0.0-0.7); LYMPHOCYTES ABSOLUTE AUTO 2.78 K/uL (0.8-3.3); LYMPHOCYTES PERCENT AUTO 35.4 % (11.4-47.7); MEAN CORPUSCULAR HEMOGLOBIN 32.5 pg (31.6-35.5); MEAN CORPUSCULAR HGB CONC 34.2 g/dL (31.6-35.5); MONOCYTES ABSOLUTE AUTO 0.74 K/uL (0.20-0.90); MONOCYTES PERCENT AUTO 9.4 % (3.3-12.6); NEUTROPHILS ABSOLUTE AUTO 4.15 K/uL (1.0-7.6); NEUTROPHILS PERCENT AUTO 52.8 % (40.0-78.1); PLATELET COUNT,PLT 244 K/uL (130-375); WHITE BLOOD CELL COUNT,WBC 7.9 K/uL (3.2-11.0)
[2024-09-19 21:51] LABS: IMMATURE GRAN ABSOLUTE AUTO 0.02 K/uL (0.00-0.23)
[2024-09-19 22:16] LABS: ANION GAP 10.9 mmol/L (5.0-14.0); EST CRCL DRUG DOSING (CG) 46.43 mL/min; POTASSIUM,K 3.9 mmol/L (3.6-5.2); TROPONIN I HIGH SENSITIVITY 5.8 pg/mL (<=60.3)
[2024-09-19 22:54] VITALS: PULSE 81
[2024-09-19 23:15] LABS: INR 2.6; PROTHROMBIN TIME 25.3 sec (9.2-10.6)
[2024-09-20 01:35] VITALS: BP 115/73
== END 2024-09-20 01:05 | disposition home or self-care (01) ==
LOC: JP.ED 21:31
DX: I48.91 Unspecified atrial fibrillation (principal); E66.9 Obesity, unspecified; Z90.49 Acquired absence of other specified parts of digestive tract; Z90.710 Acquired absence of both cervix and uterus; Z95.5 Presence of coronary angioplasty implant and graft; Z86.16 Personal history of COVID-19; Z91.040 Latex allergy status; Z88.8 Allergy status to other drugs, medicaments and biological substances; Z79.01 Long term (current) use of anticoagulants; Z79.899 Other long term (current) drug therapy; Z68.33 Body mass index [BMI] 33.0-33.9, adult
CPT/HCPCS: 36415; 71045; 71045-26; 80048; 84484; 85025; 85379; 85610; 93005; 99285

== ENCOUNTER 2024-11-27 16:44 | Emergency (ER) | payer MEDICARE, BC ==
[2024-11-27 17:26] LABS: BASOPHILS ABSOLUTE AUTO 0.04 K/uL (0.00-0.10); BASOPHILS PERCENT AUTO 0.4 % (0.1-1.3); EOSINOPHILS PERCENT AUTO 2.2 % (0.0-5.4); HEMATOCRIT 39.7 % (34.3-46.0); HEMOGLOBIN 13.6 g/dL (11.2-15.5); IMMATURE GRAN PERCENT AUTO 0.2 % (0.0-0.7); LYMPHOCYTES ABSOLUTE AUTO 3.03 K/uL (0.8-3.3); LYMPHOCYTES PERCENT AUTO 33.9 % (11.4-47.7); MEAN CORPUSCULAR HEMOGLOBIN 32.4 pg (31.6-35.5); MEAN CORPUSCULAR HGB CONC 34.3 g/dL (31.6-35.5); MEAN CORPUSCULAR VOLUME 94.5 fL (81.4-99.0); MONOCYTES ABSOLUTE AUTO 0.94 K/uL (0.20-0.90); MONOCYTES PERCENT AUTO 10.5 % (3.3-12.6); NEUTROPHILS PERCENT AUTO 52.8 % (40.0-78.1); PLATELET COUNT,PLT 243 K/uL (130-375); WHITE BLOOD CELL COUNT,WBC 8.9 K/uL (3.2-11.0)
[2024-11-27] MEDS: Sodium Chloride 0.9% 500 ML IV ONE (17:26)
[2024-11-27] MEDS: Metoprolol Tartrate 5 MG/5 ML SDV IVPUSH ONE (17:26)
[2024-11-27 17:27] LABS: IMMATURE GRAN ABSOLUTE AUTO 0.02 K/uL (0.00-0.23)
[2024-11-27 17:43] VITALS: BP 120/86; PULSE 112
[2024-11-27 17:49] LABS: ALANINE AMINOTRANSFERASE,ALT 25 U/L (12-78); ALBUMIN 3.5 g/dL (3.4-5.0); ALKALINE PHOSPHATASE 115 U/L (46-116); ASPARTATE AMNIOTRANSFERASE,AST 21 U/L (15-37); BILIRUBIN TOTAL 1.1 mg/dL (0.2-1.0); BLOOD UREA NITROGEN,BUN 21 mg/dL (7-18); CALCIUM 9.5 mg/dL (8.5-10.1); CARBON DIOXIDE,CO2 32 mmol/L (21-32); CHLORIDE,CL 101 mmol/L (100-108); EST CRCL DRUG DOSING (CG) 46.43 mL/min; ESTIMATED GFR 60 mL/min (>60); GLUCOSE RANDOM 88 mg/dL (74-106); MAGNESIUM 1.7 mg/dL (1.8-2.4); POTASSIUM,K 3.8 mmol/L (3.6-5.2); SODIUM,NA 138 mmol/L (140-148)
[2024-11-27 17:52] LABS: ANION GAP 8.8 mmol/L (5.0-14.0)
== END 2024-11-27 18:24 | disposition home or self-care (01) ==
LOC: JP.ED 16:44
DX: I48.19 Other persistent atrial fibrillation (principal); E66.9 Obesity, unspecified; Z68.31 Body mass index [BMI] 31.0-31.9, adult; Z86.16 Personal history of COVID-19; Z90.49 Acquired absence of other specified parts of digestive tract; Z90.710 Acquired absence of both cervix and uterus; Z88.8 Allergy status to other drugs, medicaments and biological substances; Z91.040 Latex allergy status; Z91.048 Other nonmedicinal substance allergy status; Z79.82 Long term (current) use of aspirin; Z79.899 Other long term (current) drug therapy
CPT/HCPCS: 36415; 80053; 83735; 85025; 93005; 96374; 99285; J3490; J7040; 93010; 99284